=== PATIENT | male | born 1995 | race Hispanic/Latino ===

== ENCOUNTER 2023-06-03 12:03 | Emergency (ER) | payer OTHER ==
[~2023-06-03] VITALS: Ht 177.8 cm; Wt 123.4 kg
[2023-06-03 12:26] VITALS: BP 134/81; PULSE 78; RESP 20
[2023-06-03 13:11] LABS: INFLUENZA TYPE A Negative For Type A (NEGATIVE); INFLUENZA TYPE B Negative For Type B (NEGATIVE)
[2023-06-03 13:12] LABS: RAPID GROUP A STREP negative (NEGATIVE)
[2023-06-03] MEDS ORDERED: AZIT250T9 PO (13:53)
[2023-06-03] MEDS ORDERED: FLUT16H NASAL (13:53)
[2023-06-03] MEDS ORDERED: D-ME118S47 PO (13:53)
[2023-06-03 14:25] LABS: SARS-CoV-2, RNA, NAAT POSITIVE SARS CoV-2 (NEGATIVE)
== END 2023-06-03 14:25 | disposition home or self-care (01) ==
LOC: EDH 12:03
DX: U07.1 COVID-19 (principal); J01.90 Acute sinusitis, unspecified; Z79.899 Other long term (current) drug therapy
CPT/HCPCS: 99283; 87635; 87880; 87804 ×2; C9803